=== PATIENT | male | born 1950 | race Caucasian/White ===

== ENCOUNTER 2019-10-21 15:00 | Emergency (ER) | payer MEDICARE ==
[~2019-10-21 15:00] MED LIST: CLOP75TA14 PO; GABA-531 PO; HYDR12.530 PO; INSU100V SQ; INSU300I SQ; LEVO75TA10 PO; LORA10TA7 PO; OMEG1CAP31 PO; PARO-66 PO; PROP80TA4 PO; RANI300T7 PO; SIMV-43 PO; SITA50TA PO; UBID100C10 PO
[2019-10-21] MEDS ORDERED: TETANUS/DIPHTHERIA TOXOID [ADULT] 0.5 ML VIAL IM ONE (16:10)
== END 2019-10-21 17:27 | disposition home or self-care (01) ==
LOC: EDH 15:00
DX: S61.211A Laceration without foreign body of left index finger without damage to nail, initial encounter (principal); E11.9 Type 2 diabetes mellitus without complications; Z91.041 Radiographic dye allergy status; Z88.8 Allergy status to other drugs, medicaments and biological substances; Z87.891 Personal history of nicotine dependence; W26.0XXA Contact with knife, initial encounter; Y93.G3 Activity, cooking and baking; Y92.098 Other place in other non-institutional residence as the place of occurrence of the external cause; Y99.8 Other external cause status
CPT/HCPCS: 73140; 90471; 90714

== ENCOUNTER 2020-10-04 09:57 | Emergency (ER) | payer MEDICARE ==
[2020-10-04 10:17] LABS: BASOPHILS % (AUTO) 0.5 % (0.0-5.0); EOSINOPHILS % (AUTO) 4.5 % (0.0-8.0); HEMATOCRIT 36.3 % (42-54); LYMPHOCYTES % (AUTO) 9.3 % (21.0-51.0); MEAN CORPUSCULAR HEMOGLOBIN 30.1 pg (27.0-33.0); MEAN CORPUSCULAR HGB CONC 30.3 g/dL (32.0-36.0); MEAN CORPUSCULAR VOLUME 99.2 fL (79-99); MONOCYTES % (AUTO) 11.8 % (3.0-13.0); PLATELET COUNT (AUTO) 246 K/uL (130-400); RED BLOOD CELL COUNT(AUTO) 3.66 MIL/uL (4.50-6.20); RED CELL DISTRIBUTION WIDTH 14.1 % (11.0-15.5); WHITE BLOOD COUNT (AUTO) 10.5 K/uL (4.8-10.8)
[2020-10-04 10:33] LABS: INR 1.06 (0.85-1.15); PARTIAL THROMBOPLASTIN TIME 37.6 SEC (26.3-35.5); PROTHROMBIN TIME 11.4 SEC (9.6-11.6)
[2020-10-04] MEDS ORDERED: ONDANSETRON HCL 4 MG/2 ML VIAL ONE (10:48)
[2020-10-04] MEDS ORDERED: MORPHINE SULFATE 4 MG/1ML SYG ONE (10:49)
[2020-10-04 10:58] LABS: ALBUMIN 3.6 g/dL (3.5-5.0); BILIRUBIN,TOTAL 0.3 mg/dL (0.2-1.0); CREATININE 1.7 mg/dL (0.5-1.5); POTASSIUM 4.5 mmol/L (3.5-5.1); TOTAL PROTEIN, SERUM 6.9 g/dL (6.0-8.3)
== END 2020-10-04 12:23 | disposition home or self-care (01) ==
LOC: EDH 09:57
DX: M25.061 Hemarthrosis, right knee (principal); M25.561 Pain in right knee; R07.89 Other chest pain; E11.9 Type 2 diabetes mellitus without complications; I10 Essential (primary) hypertension; I25.10 Atherosclerotic heart disease of native coronary artery without angina pectoris; I25.2 Old myocardial infarction; Z98.890 Other specified postprocedural states; Z91.041 Radiographic dye allergy status; Z88.8 Allergy status to other drugs, medicaments and biological substances; Z95.1 Presence of aortocoronary bypass graft; Z96.651 Presence of right artificial knee joint; W01.198A Fall on same level from slipping, tripping and stumbling with subsequent striking against other object, initial encounter; Y93.89 Activity, other specified; Y92.89 Other specified places as the place of occurrence of the external cause; Y99.8 Other external cause status
CPT/HCPCS: 36415; 71045; 73562; 80053; 84484; 85025; 85610; 85730; 93005; 96372; 96374; 99285; J2270; J2405

== ENCOUNTER → 2023-01-16 | Outpatient (CLI) | payer MEDICARE ==
[~2023-01-16] MED LIST changes: +ATOR20TA65 PO; +CARV6.2579 PO; +CITA-106 PO; -CLOP75TA14 PO; -GABA-531 PO; +GABA600T10 PO; -HYDR12.530 PO; -INSU100V SQ; -INSU300I SQ; +LEVO100T12 PO; -LEVO75TA10 PO; +MULT-1192 PO; +OMEG100014 PO; -OMEG1CAP31 PO; +PANT40TA PO; -PARO-66 PO; -PROP80TA4 PO; -RANI300T7 PO; -SIMV-43 PO; -SITA50TA PO; -UBID100C10 PO
[2023-01-16 16:16] LABS: BASOPHILS % (AUTO) 0.7 % (0.0-5.0); EOSINOPHILS % (AUTO) 3.7 % (0.0-8.0); HEMATOCRIT 29.2 % (42-54); LYMPHOCYTES % (AUTO) 11.4 % (21.0-51.0); MEAN CORPUSCULAR HEMOGLOBIN 22.7 pg (27.0-33.0); MEAN CORPUSCULAR HGB CONC 27.4 g/dL (32.0-36.0); MONOCYTES % (AUTO) 9.7 % (3.0-13.0); NEUTROPHILS % (AUTO) 74.1 % (40.0-77.0); PLATELET COUNT (AUTO) 407 K/uL (130-400); RED BLOOD CELL COUNT(AUTO) 3.52 MIL/uL (4.50-6.20); RED CELL DISTRIBUTION WIDTH 22.5 % (11.0-15.5); WHITE BLOOD COUNT (AUTO) 8.1 K/uL (4.8-10.8)
[2023-01-16 16:21] LABS: CREATININE 1.6 mg/dL (0.5-1.5)
== END | disposition home or self-care (01) ==
LOC: LAB 15:13
PROVIDERS: ATTEND Internal Medicine Cardiovascular Disease
DX: I48.0 Paroxysmal atrial fibrillation (principal); E78.5 Hyperlipidemia, unspecified; I10 Essential (primary) hypertension
CPT/HCPCS: 36415; 80048; 85025

== ENCOUNTER 2023-08-20 04:15 | Observation (INO) | payer MEDICARE, OTHER ==
[~2023-08-20] VITALS: Ht 182.9 cm; Wt 95.3 kg
[2023-08-20 04:55] LABS: BASOPHILS # (AUTO) 0.06 K/uL (0.00-0.20); BASOPHILS % (AUTO) 0.6 % (0.0-5.0); EOSINOPHILS # (AUTO) 0.48 K/uL (0.00-0.70); EOSINOPHILS % (AUTO) 4.9 % (0.0-8.0); HEMATOCRIT 43.2 % (42-54); IMMATURE GRANULOCYTE ABSOLUTE 0.04 K/uL (0-1); LYMPHOCYTES # (AUTO) 1.6 K/uL (1.0-4.8); LYMPHOCYTES % (AUTO) 16.7 % (21.0-51.0); MEAN CORPUSCULAR HEMOGLOBIN 29.6 pg (27.0-33.0); MEAN CORPUSCULAR HGB CONC 32.6 g/dL (32.0-36.0); MEAN CORPUSCULAR VOLUME 90.6 fL (79-99); MONOCYTES % (AUTO) 10.5 % (3.0-13.0); NEUTROPHILS # (AUTO) 6.5 K/uL (1.8-7.7); NEUTROPHILS % (AUTO) 66.9 % (40.0-77.0); PLATELET COUNT (AUTO) 279 K/uL (130-400); RED BLOOD CELL COUNT(AUTO) 4.77 MIL/uL (4.50-6.20); RED CELL DISTRIBUTION WIDTH 15.9 % (11.0-15.5); WHITE BLOOD COUNT (AUTO) 9.7 K/uL (4.8-10.8)
[2023-08-20] MEDS ORDERED: KETOROLAC 30MG VIAL (30MG/ML) IVP ONE (05:00)
[2023-08-20] MEDS ORDERED: HYDROMORPHONE 1 MG INJ IVP ONE (05:00)
[2023-08-20] MEDS ORDERED: 0.9%NACL 1000ML 1,000 ML IV ONE ×2 (05:00→09:30)
[2023-08-20] MEDS ORDERED: MORPHINE 4 MG SYG IV ONE ×2 (05:00→07:30)
[2023-08-20 05:07] LABS: CREATININE 1.4 mg/dL (0.5-1.5); POTASSIUM 4.2 mmol/L (3.5-5.1)
[2023-08-20 05:11] LABS: ALBUMIN 4.3 g/dL (3.5-5.0); BILIRUBIN,TOTAL 0.4 mg/dL (0.2-1.0); TOTAL PROTEIN, SERUM 8.4 g/dL (6.0-8.3)
[2023-08-20 07:27] LABS: ADD UA MICROSCOPIC YES; APPEARANCE,URINE CLOUDY (CLEAR); BILIRUBIN,URINE NEGATIVE (NEGATIVE); COLOR,URINE LIGHT-YELLOW (YELLOW); GLUCOSE, URINE (UA) NEGATIVE (NEGATIVE); KETONES,URINE NEGATIVE (NEGATIVE); LEUKOCYTE ESTERASE ,URINE 500 Leu/uL (NEGATIVE); NITRATE,URINE NEGATIVE (NEGATIVE); OCCULT BLOOD,URINE LARGE (NEGATIVE); PROTEIN,URINE 50 mg/dL (NEGATIVE); UROBILINOGEN,URINE 0.2 mg/dL (0.2-1.0)
[2023-08-20 07:33] LABS: BACTERIA,URINE RARE /HPF (None Seen); MUCUS,URINE RARE LPF (None Seen); RBC,URINE TNTC /HPF (0-1); SQUAMOUS EPITHELIAL CELL,UR RARE /HPF (0-2); WBC CLUMP MANY /HPF (0-1); WBC,URINE TNTC /HPF (0-1)
[2023-08-20] MEDS ORDERED: CEFTRIAXONE 2GM VIAL IVPB ONE (08:00)
[2023-08-20] MEDS ORDERED: MORPHINE 4 MG SYG IVP ONE (09:30)
[2023-08-20] MEDS ORDERED: ONDANSETRON 4MG INJ IVP PRN (10:00)
[2023-08-20] MEDS ORDERED: ACETAMINOPHEN 325 MG TAB PO PRN (10:00)
[2023-08-20] MEDS: CEFTRIAXONE 1G VIAL IVPB SCH (10:00)
[2023-08-20] MEDS ORDERED: TAMSULOSIN HCL 0.4 MG CAP.ER.24H PO ONE (10:00)
[2023-08-20] MEDS: INSULIN HUMULIN R 100 UNIT/ML 3ML SQ SCH ×3 (11:30→20:07)
[2023-08-20 12:00] VITALS: BP 144/89; PULSE 72; RESP 19; O2SAT 96
[2023-08-20] MEDS: MORPHINE 2 MG SYG IVP PRN ×3 (12:58→21:50)
[2023-08-20 16:00] VITALS: BP 154/94; PULSE 66; RESP 16
[2023-08-20] MEDS ORDERED: ALPR1TAB2 PO (18:37)
[2023-08-20] MEDS ORDERED: FLUT16H NASAL (18:37)
[2023-08-20] MEDS ORDERED: RIVA20TA PO (18:37)
[2023-08-20] MEDS ORDERED: MONT-47 PO (18:37)
[2023-08-20] MEDS ORDERED: SEMA0.258 SQ (18:37)
[2023-08-20] MEDS ORDERED: ESOM20CA31 PO (18:37)
[2023-08-20] MEDS ORDERED: ESCI20TA38 PO (18:37)
[2023-08-20] MEDS ORDERED: GABA600T10 PO (18:37)
[2023-08-20] MEDS ORDERED: EZET10TA48 PO (18:37)
[2023-08-20] MEDS ORDERED: UBID100C10 PO (18:37)
[2023-08-20] MEDS ORDERED: ESCI20TA PO (18:37)
[2023-08-20] MEDS ORDERED: INDA2.5T5 PO (18:37)
[2023-08-20] MEDS ORDERED: AMIT10TA6 PO (18:37)
[2023-08-20] MEDS ORDERED: ASPI-1443 PO (18:37)
[2023-08-20 20:00] VITALS: BP 183/101; PULSE 78; RESP 18
[2023-08-20] MEDS: HYDRALAZINE 20MG/ML VIAL IV PRN (20:09)
[2023-08-20 23:30] VITALS: BP 180/85; PULSE 95; RESP 18
[2023-08-20] MEDS: ACETAMINOPHEN 325 MG TAB PO PRN (23:41)
[2023-08-20] MEDS ORDERED: LABETALOL 20MG SYG IV ONE (23:45)
[2023-08-21] VITALS (8 sets, daily range): BP systolic 128–177; BP diastolic 71–109; PULSE 80–121; RESP 18–20; O2SAT 97–99
[2023-08-21] MEDS: MORPHINE 2 MG SYG IVP PRN ×2 (03:45→10:11)
[2023-08-21] MEDS: HYDRALAZINE 20MG/ML VIAL IV PRN ×2 (04:17→08:59)
[2023-08-21 06:21] LABS: BASOPHILS # (AUTO) 0.02 K/uL (0.00-0.20); BASOPHILS % (AUTO) 0.2 % (0.0-5.0); EOSINOPHILS # (AUTO) 0.02 K/uL (0.00-0.70); EOSINOPHILS % (AUTO) 0.2 % (0.0-8.0); HEMATOCRIT 39.5 % (42-54); IMMATURE GRANULOCYTE ABSOLUTE 0.04 K/uL (0-1); LYMPHOCYTES # (AUTO) 0.7 K/uL (1.0-4.8); LYMPHOCYTES % (AUTO) 6.5 % (21.0-51.0); MEAN CORPUSCULAR HEMOGLOBIN 29.4 pg (27.0-33.0); MEAN CORPUSCULAR HGB CONC 31.9 g/dL (32.0-36.0); MEAN CORPUSCULAR VOLUME 92.1 fL (79-99); MONOCYTES # (AUTO) 0.4 K/uL (0.1-1.0); MONOCYTES % (AUTO) 3.5 % (3.0-13.0); NEUTROPHILS # (AUTO) 8.9 K/uL (1.8-7.7); NEUTROPHILS % (AUTO) 89.2 % (40.0-77.0); PLATELET COUNT (AUTO) 245 K/uL (130-400); RED BLOOD CELL COUNT(AUTO) 4.29 MIL/uL (4.50-6.20); RED CELL DISTRIBUTION WIDTH 15.8 % (11.0-15.5)
[2023-08-21 06:27] LABS: CREATININE 1.1 mg/dL (0.5-1.5); MAGNESIUM 1.5 mg/dL (1.80-2.40); POTASSIUM 3.5 mmol/L (3.5-5.1)
[2023-08-21] MEDS: INSULIN HUMULIN R 100 UNIT/ML 3ML SQ SCH ×4 (06:32→21:45)
[2023-08-21] MEDS ORDERED: MAGNESIUM 2GM PREMIX 50ML 50 ML IV PRN (07:30)
[2023-08-21] MEDS ORDERED: POTASSIUM CHLORIDE 10% ELIXIR 20 MEQ/15 ML UDCUP PO PRN (07:30)
[2023-08-21] MEDS ORDERED: POTASSIUM CHLORIDE 20MEQ/100ML 100 ML IV PRN (07:30)
[2023-08-21] MEDS: RIVAROXABAN 20 MG TABLET PO SCH (08:58)
[2023-08-21] MEDS: TAMSULOSIN HCL 0.4 MG CAP.ER.24H PO SCH (08:58)
[2023-08-21] MEDS: KCL 20 MEQ ERTAB PO PRN ×2 (08:59→12:59)
[2023-08-21] MEDS ORDERED: NON-FORMULARY MEDICATION 1 EACH (Escitalopram Oxalate (Lexapro) 20 MG) PO SCH (09:00)
[2023-08-21] MEDS: Escitalopram Oxalate 20 MG PO SCH (09:00)
[2023-08-21] MEDS: FATTY ACIDS PO SCH (09:00)
[2023-08-21] MEDS ORDERED: NON-FORMULARY MEDICATION 1 EACH (Multivitamin (Multi-Vitamin Daily) 1 EACH) PO SCH (09:00)
[2023-08-21] MEDS: Ubidecarenone (Coq-10) 100 MG PO SCH (09:00)
[2023-08-21] MEDS: OMEGA PO SCH (09:00)
[2023-08-21] MEDS: ASPIRIN 81 MG EC TAB PO SCH (09:00)
[2023-08-21] MEDS: INDAPAMIDE 2.5 MG PO SCH (09:00)
[2023-08-21] MEDS: ACETAMINOPHEN 325 MG TAB PO PRN (09:01)
[2023-08-21] MEDS: CEFTRIAXONE 1G VIAL IVPB SCH (09:03)
[2023-08-21] MEDS: PANTOPRAZOLE 40 MG/VIAL IVP SCH (09:12)
[2023-08-21] MEDS ORDERED: HYDROMORPHONE 2 MG VIAL (2MG/ML) IVP ONE (10:30)
[2023-08-21] MEDS ORDERED: CYCLOBENZAPRINE HCL 10 MG TABLET PO PRN (10:30)
[2023-08-21] MEDS ORDERED: LIDOCAINE 5% TOPICAL PATCH TP ONE (10:30)
[2023-08-21] MEDS ORDERED: MAG/ALUM/SIMETH 30 ML UDCUP PO PRN (13:00)
[2023-08-21] MEDS ORDERED: GABAPENTIN 300 MG CAPSULE PO SCH (21:00)
[2023-08-21] MEDS ORDERED: NON-FORMULARY MEDICATION 1 EACH (Gabapentin 600 MG) PO SCH (21:00)
[2023-08-21] MEDS ORDERED: EZETIMIBE 10 MG TAB PO SCH (21:00)
[2023-08-21] MEDS ORDERED: ATORVASTATIN 20 MG TABLET PO SCH (21:00)
[2023-08-21] MEDS ORDERED: AMITRIPTYLINE 10MG TAB PO SCH (21:00)
[2023-08-21] MEDS ORDERED: MONTELUKAST SODIUM 10 MG TAB PO SCH (21:00)
[2023-08-21] MEDS ORDERED: CARVEDILOL 6.25 MG TABLET PO SCH (21:00)
[2023-08-22 04:00] VITALS: BP 123/73; PULSE 79; RESP 18
[2023-08-22 05:41] LABS: BASOPHILS # (AUTO) 0.02 K/uL (0.00-0.20); BASOPHILS % (AUTO) 0.3 % (0.0-5.0); EOSINOPHILS # (AUTO) 0.23 K/uL (0.00-0.70); EOSINOPHILS % (AUTO) 3.3 % (0.0-8.0); HEMATOCRIT 36.2 % (42-54); IMMATURE GRANULOCYTE ABSOLUTE 0.04 K/uL (0-1); LYMPHOCYTES # (AUTO) 1.4 K/uL (1.0-4.8); LYMPHOCYTES % (AUTO) 19.3 % (21.0-51.0); MEAN CORPUSCULAR HEMOGLOBIN 29.5 pg (27.0-33.0); MEAN CORPUSCULAR HGB CONC 32.3 g/dL (32.0-36.0); MEAN CORPUSCULAR VOLUME 91.4 fL (79-99); MONOCYTES # (AUTO) 0.9 K/uL (0.1-1.0); MONOCYTES % (AUTO) 12.1 % (3.0-13.0); NEUTROPHILS # (AUTO) 4.6 K/uL (1.8-7.7); NEUTROPHILS % (AUTO) 64.4 % (40.0-77.0); PLATELET COUNT (AUTO) 241 K/uL (130-400); RED BLOOD CELL COUNT(AUTO) 3.96 MIL/uL (4.50-6.20); RED CELL DISTRIBUTION WIDTH 16.1 % (11.0-15.5); WHITE BLOOD COUNT (AUTO) 7.1 K/uL (4.8-10.8)
[2023-08-22 06:12] LABS: CREATININE 1.3 mg/dL (0.5-1.5); POTASSIUM 3.6 mmol/L (3.5-5.1)
[2023-08-22] MEDS ORDERED: LEVO-70 PO (06:40)
[2023-08-22] MEDS: KCL 20 MEQ ERTAB PO PRN ×2 (06:40→08:29)
[2023-08-22] MEDS: INSULIN HUMULIN R 100 UNIT/ML 3ML SQ SCH ×2 (06:42→11:28)
[2023-08-22] MEDS ORDERED: TAMS-1 PO (06:46)
[2023-08-22] MEDS ORDERED: LEVOTHYROXINE 100 MCG TABLET PO SCH (07:30)
[2023-08-22 08:00] VITALS: BP 116/71; PULSE 73; RESP 18; O2SAT 96
[2023-08-22] MEDS: CEFTRIAXONE 1G VIAL IVPB SCH (08:27)
[2023-08-22] MEDS: PANTOPRAZOLE 40 MG/VIAL IVP SCH (08:27)
[2023-08-22] MEDS: TAMSULOSIN HCL 0.4 MG CAP.ER.24H PO SCH (08:29)
[2023-08-22] MEDS: ASPIRIN 81 MG EC TAB PO SCH (08:29)
[2023-08-22] MEDS: RIVAROXABAN 20 MG TABLET PO SCH (08:29)
[2023-08-22] MEDS: FATTY ACIDS PO SCH (08:39)
[2023-08-22] MEDS: OMEGA PO SCH (08:39)
[2023-08-22] MEDS: Ubidecarenone (Coq-10) 100 MG PO SCH (08:39)
[2023-08-22] MEDS: INDAPAMIDE 2.5 MG PO SCH (08:39)
[2023-08-22] MEDS: Escitalopram Oxalate 20 MG PO SCH (08:39)
[2023-08-22] MEDS ORDERED: LIDOCAINE 5% TOPICAL PATCH TP SCH (09:00)
[2023-08-22 12:00] VITALS: BP 133/79; PULSE 74; RESP 18
== END 2023-08-22 13:00 | disposition still patient (30) ==
LOC: EDH 04:15 → INTOOBSV 09:57 → EDHIP 09:57 → 3CH 12:15
PROVIDERS: ADMIT Hospitalist; ATTEND Hospitalist
DX: N39.0 Urinary tract infection, site not specified (principal); N20.0 Calculus of kidney; R31.0 Gross hematuria; M79.669 Pain in unspecified lower leg; M54.32 Sciatica, left side; E03.9 Hypothyroidism, unspecified; I25.10 Atherosclerotic heart disease of native coronary artery without angina pectoris; E78.00 Pure hypercholesterolemia, unspecified; G47.33 Obstructive sleep apnea (adult) (pediatric); G89.29 Other chronic pain; Q33.3 Agenesis of lung; Z79.01 Long term (current) use of anticoagulants; Z79.899 Other long term (current) drug therapy; Z87.442 Personal history of urinary calculi; Z95.1 Presence of aortocoronary bypass graft; Z95.5 Presence of coronary angioplasty implant and graft; Z96.641 Presence of right artificial hip joint; Z96.659 Presence of unspecified artificial knee joint; Z79.82 Long term (current) use of aspirin; Z98.890 Other specified postprocedural states
CPT/HCPCS: 96376 ×3; 96361; 96365; 96366; 96375; 99285; 80053; 85025 ×3; 87077; 87088; 87186; 82948 ×10; 81001; 36415 ×3; 74176; 96372; 83735 ×2; 80048 ×2; 97161; 97116 ×2; 97530 ×5; J1170; J2270 ×8; J7030; J0696 ×3; J0360 ×3; J1885; J3475; C9113 ×2; J1815; G8980; G8983; G0378

== ENCOUNTER → 2023-12-07 | Outpatient (CLI) | payer MEDICARE ==
[~2023-12-07] MED LIST changes: +ALPR1TAB2 PO; +AMIT10TA6 PO; +ASPI-1443 PO; -CITA-106 PO; +ESCI20TA PO; +ESCI20TA38 PO; +ESOM20CA31 PO; +EZET10TA48 PO; +FLUT16H NASAL; +INDA2.5T5 PO; +LEVO-70 PO; -LORA10TA7 PO; +MONT-47 PO; +RIVA20TA PO; +SEMA0.258 SQ; +TAMS-1 PO; +UBID100C10 PO
[2023-12-07 15:12] LABS: BASOPHILS # (AUTO) 0.06 K/uL (0.00-0.20); BASOPHILS % (AUTO) 0.7 % (0.0-5.0); EOSINOPHILS # (AUTO) 0.32 K/uL (0.00-0.70); HEMATOCRIT 38.7 % (42-54); IMMATURE GRANULOCYTE ABSOLUTE 0.06 K/uL (0-1); LYMPHOCYTES # (AUTO) 1.4 K/uL (1.0-4.8); LYMPHOCYTES % (AUTO) 17.9 % (21.0-51.0); MEAN CORPUSCULAR HEMOGLOBIN 29.8 pg (27.0-33.0); MEAN CORPUSCULAR HGB CONC 31.3 g/dL (32.0-36.0); MEAN CORPUSCULAR VOLUME 95.3 fL (79-99); NEUTROPHILS # (AUTO) 5.1 K/uL (1.8-7.7); NEUTROPHILS % (AUTO) 63.7 % (40.0-77.0); PLATELET COUNT (AUTO) 295 K/uL (130-400); RED BLOOD CELL COUNT(AUTO) 4.06 MIL/uL (4.50-6.20); RED CELL DISTRIBUTION WIDTH 13.4 % (11.0-15.5)
[2023-12-07 15:32] LABS: BILIRUBIN,TOTAL 0.3 mg/dL (0.2-1.0); CREATININE 1.5 mg/dL (0.5-1.5); MAGNESIUM 1.9 mg/dL (1.80-2.40); POTASSIUM 4.2 mmol/L (3.5-5.1); TOTAL PROTEIN, SERUM 7.4 g/dL (6.0-8.3)
== END | disposition home or self-care (01) ==
LOC: LAB 13:22
PROVIDERS: ATTEND Internal Medicine Cardiovascular Disease
DX: I10 Essential (primary) hypertension (principal); E78.5 Hyperlipidemia, unspecified
CPT/HCPCS: 36415; 80053; 83735; 83880; 85025

== ENCOUNTER 2023-12-26 17:33 | Emergency (ER) | payer MEDICARE ==
[~2023-12-26] VITALS: Ht 182.9 cm; Wt 90.7 kg
[~2023-12-26 17:33] MED LIST changes: +AMOX1TAB16 PO; +BUDE10.7 IH; +CHOL500045 PO; +LEVO750T39 PO
[2023-12-26 18:19] VITALS: BP 201/103; PULSE 108; RESP 20
[2023-12-26] MEDS ORDERED: PHEN-847 PO (18:52)
[2023-12-26] MEDS: PHENAZOPYRIDINE HCL 200 MG TABLET PO ONE (19:17)
[2023-12-26] MEDS: AMOX/CLAV 875/125MG TAB PO ONE (19:17)
== END 2023-12-26 19:35 | disposition home or self-care (01) ==
LOC: EDH 17:33
DX: R33.9 Retention of urine, unspecified (principal); Z79.82 Long term (current) use of aspirin; Z79.84 Long term (current) use of oral hypoglycemic drugs; Z79.899 Other long term (current) drug therapy; Z98.890 Other specified postprocedural states; Z88.1 Allergy status to other antibiotic agents; Z88.5 Allergy status to narcotic agent; Z91.030 Bee allergy status; Z91.041 Radiographic dye allergy status; Z88.8 Allergy status to other drugs, medicaments and biological substances
CPT/HCPCS: 51702

== ENCOUNTER 2023-12-31 02:17 | Inpatient (IN) | payer MEDICARE ==
[~2023-12-31] VITALS: Ht 182.9 cm; Wt 105.6 kg
[~2023-12-31 02:17] MED LIST changes: -AMIT10TA6 PO; -ASPI-1443 PO; -CARV6.2579 PO; -ESCI20TA38 PO; -ESOM20CA31 PO; -GABA600T10 PO; -INDA2.5T5 PO; -LEVO-70 PO; -LEVO750T39 PO; +PHEN-847 PO
[2023-12-31 03:06] LABS: BASOPHILS # (AUTO) 0.03 K/uL (0.00-0.20); BASOPHILS % (AUTO) 0.2 % (0.0-5.0); EOSINOPHILS # (AUTO) 0.43 K/uL (0.00-0.70); EOSINOPHILS % (AUTO) 3.1 % (0.0-8.0); HEMATOCRIT 31.7 % (42-54); IMMATURE GRANULOCYTE ABSOLUTE 0.35 K/uL (0-1); LYMPHOCYTES # (AUTO) 1.6 K/uL (1.0-4.8); LYMPHOCYTES % (AUTO) 11.5 % (21.0-51.0); MEAN CORPUSCULAR HEMOGLOBIN 28.9 pg (27.0-33.0); MEAN CORPUSCULAR HGB CONC 32.5 g/dL (32.0-36.0); MONOCYTES # (AUTO) 1.4 K/uL (0.1-1.0); MONOCYTES % (AUTO) 10.3 % (3.0-13.0); NEUTROPHILS % (AUTO) 72.4 % (40.0-77.0); PLATELET COUNT (AUTO) 344 K/uL (130-400); RED BLOOD CELL COUNT(AUTO) 3.56 MIL/uL (4.50-6.20); RED CELL DISTRIBUTION WIDTH 13.2 % (11.0-15.5); WHITE BLOOD COUNT (AUTO) 13.8 K/uL (4.8-10.8)
[2023-12-31] MEDS: ONDANSETRON 4MG INJ IVP ONE (03:06)
[2023-12-31] MEDS: KETOROLAC 30MG VIAL (30MG/ML) IVP ONE (03:06)
[2023-12-31 03:16] LABS: CREATININE 1.6 mg/dL (0.5-1.5); POTASSIUM 3.4 mmol/L (3.5-5.1)
[2023-12-31 03:30] LABS: ALBUMIN 3.1 g/dL (3.5-5.0); BILIRUBIN,TOTAL 0.4 mg/dL (0.2-1.0); TOTAL PROTEIN, SERUM 6.9 g/dL (6.0-8.3)
[2023-12-31] MEDS: DiphenhydrAMINE HCL 50 MG/ML VIAL IV ONE (03:38)
[2023-12-31 03:53] LABS: APPEARANCE,URINE CLOUDY (CLEAR); BILIRUBIN,URINE 1 mg/dL (NEGATIVE); COLOR,URINE DARK-YELLOW (YELLOW); GLUCOSE, URINE (UA) NEGATIVE (NEGATIVE); KETONES,URINE NEGATIVE (NEGATIVE); LEUKOCYTE ESTERASE ,URINE 500 Leu/uL (NEGATIVE); NITRATE,URINE 1+ (NEGATIVE); OCCULT BLOOD,URINE LARGE (NEGATIVE); PROTEIN,URINE 30 mg/dL (NEGATIVE); UROBILINOGEN,URINE 3 mg/dL (0.2-1.0)
[2023-12-31 03:54] LABS: ADD UA MICROSCOPIC YES
[2023-12-31 03:59] LABS: BACTERIA,URINE RARE /HPF (None Seen); MUCUS,URINE RARE LPF (None Seen); RBC,URINE TNTC /HPF (0-1); SQUAMOUS EPITHELIAL CELL,UR RARE /HPF (0-2); WBC,URINE 51-100 /HPF (0-1)
[2023-12-31] MEDS: CEFTRIAXONE 2GM VIAL IVPB ONE (04:17)
[2023-12-31] MEDS: HYDROMORPHONE 1 MG INJ IVP ONE (04:18)
[2023-12-31] MEDS: POTASSIUM BICARB/CIT AC 25 MEQ TABLET.EFF PO ONE (05:58)
[2023-12-31] MEDS: POTASSIUM BICARB/CIT AC 25 MEQ TABLET.EFF ONE (05:59)
[2023-12-31] MEDS ORDERED: ONDANSETRON 4MG INJ IV PRN (06:30)
[2023-12-31] MEDS ORDERED: DEXTROSE 50%-WATER 50 ML DISP.SYRIN IV PRN (06:30)
[2023-12-31] MEDS ORDERED: GLUCAGON 1MG KIT 1 MG ML IM PRN (06:30)
[2023-12-31] MEDS: LACTATED RINGERS 1000ML 1,000 ML IV SCH (07:16)
[2023-12-31] MEDS: INSULIN HUMULIN R 100 UNIT/ML 3ML SQ SCH (07:16)
[2023-12-31] MEDS ORDERED: CEFTRIAXONE 1G VIAL 1 GM in 0.9%NACL 50ML 50 ML IV SCH (09:00)
[2023-12-31] MEDS: FAMOTIDINE 20MG VIAL IV SCH (09:10)
[2023-12-31] MEDS: HYDROMORPHONE 0.5 MG SYG (0.5MG/0.5ML) IVP PRN (10:13)
[2023-12-31] MEDS: KETOROLAC 15MG/ML VIAL (15MG/ML) IV PRN (13:29)
[2023-12-31] MEDS: CEFTRIAXONE 1G VIAL IVPB SCH (18:03)
[2023-12-31 21:25] LABS: SARS-CoV-2, RNA, NAAT NEGATIVE SARS CoV-2 (NEGATIVE)
[2023-12-31 21:32] LABS: INFLUENZA TYPE A Negative For Type A (NEGATIVE); INFLUENZA TYPE B Negative For Type B (NEGATIVE)
[2023-12-31 23:10] VITALS: BP 129/69; PULSE 73; RESP 18; O2SAT 95
[2024-01-01] VITALS (7 sets, daily range): BP systolic 130–150; BP diastolic 66–80; PULSE 69–78; RESP 17–18; O2SAT 95–97
[2024-01-01 06:01] LABS: BASOPHILS # (AUTO) 0.02 K/uL (0.00-0.20); BASOPHILS % (AUTO) 0.3 % (0.0-5.0); EOSINOPHILS # (AUTO) 0.46 K/uL (0.00-0.70); EOSINOPHILS % (AUTO) 5.8 % (0.0-8.0); HEMATOCRIT 30.2 % (42-54); IMMATURE GRANULOCYTE ABSOLUTE 0.15 K/uL (0-1); LYMPHOCYTES # (AUTO) 0.6 K/uL (1.0-4.8); LYMPHOCYTES % (AUTO) 6.9 % (21.0-51.0); MEAN CORPUSCULAR HEMOGLOBIN 28.3 pg (27.0-33.0); MEAN CORPUSCULAR HGB CONC 30.1 g/dL (32.0-36.0); MEAN CORPUSCULAR VOLUME 94.1 fL (79-99); MONOCYTES # (AUTO) 0.8 K/uL (0.1-1.0); NEUTROPHILS % (AUTO) 75.1 % (40.0-77.0); PLATELET COUNT (AUTO) 297 K/uL (130-400); RED BLOOD CELL COUNT(AUTO) 3.21 MIL/uL (4.50-6.20); RED CELL DISTRIBUTION WIDTH 13.4 % (11.0-15.5)
[2024-01-01 06:13] LABS: INR 0.98 (0.85-1.15); PROTHROMBIN TIME 11.4 SEC (9.6-11.6)
[2024-01-01 06:14] LABS: PARTIAL THROMBOPLASTIN TIME 41.1 SEC (26.3-35.5)
[2024-01-01 06:22] LABS: ALBUMIN 2.5 g/dL (3.5-5.0); BILIRUBIN,TOTAL 0.3 mg/dL (0.2-1.0); CREATININE 1.5 mg/dL (0.5-1.5); MAGNESIUM 1.7 mg/dL (1.80-2.40); POTASSIUM 4.2 mmol/L (3.5-5.1); TOTAL PROTEIN, SERUM 5.8 g/dL (6.0-8.3)
[2024-01-01] MEDS: MAGNESIUM 2GM PREMIX 50ML 50 ML IV PRN (06:39)
[2024-01-01 08:43] LABS: WBC MORPHOLOGY CONSISTENT W/DIFF
[2024-01-01] MEDS ORDERED: FLUTICASONE PROPIONATE 50MCG/SPRAY 16 GM BOTTLE NS PRN (20:00)
[2024-01-01] MEDS: PANTOPRAZOLE 40 MG TAB DR PO SCH (20:05)
[2024-01-01] MEDS: TAMSULOSIN HCL 0.4 MG CAP.ER.24H PO SCH (20:05)
[2024-01-01] MEDS: ESCITALOPRAM OXALATE 20 MG PO SCH (21:00)
[2024-01-01] MEDS: FATTY ACIDS PO SCH (21:00)
[2024-01-01] MEDS: OMEGA PO SCH (21:00)
[2024-01-01] MEDS: EZETIMIBE 10 MG TAB PO SCH (21:12)
[2024-01-01] MEDS: MONTELUKAST SODIUM 10 MG TAB PO SCH (21:12)
[2024-01-01] MEDS: ALPRAZOLAM 1 MG TAB PO SCH (21:12)
[2024-01-01] MEDS: ATORVASTATIN 40 MG TABLET PO SCH (21:12)
[2024-01-02 04:00] VITALS: BP 164/89; PULSE 75; RESP 18
[2024-01-02] MEDS: LEVOTHYROXINE 100 MCG TABLET PO SCH (05:34)
[2024-01-02 07:45] VITALS: O2SAT 95
[2024-01-02 08:00] VITALS: BP 158/86; PULSE 70; RESP 18
[2024-01-02] MEDS: UBIDECARENONE 200 MG PO SCH (09:00)
[2024-01-02] MEDS: (Cholecalciferol (Vitamin D3) (Vitamin D3) 125 MCG) PO SCH (09:00)
[2024-01-02] MEDS ORDERED: TAMSULOSIN HCL 0.4 MG CAP.ER.24H PO SCH (09:00)
[2024-01-02] MEDS: RIVAROXABAN 20 MG TABLET PO SCH (09:16)
[2024-01-02] MEDS: MULTIVITAMIN TABLET PO SCH (09:17)
[2024-01-02] MEDS ORDERED: TAMS-1 PO (11:42)
[2024-01-02 11:47] VITALS: BP 133/79; PULSE 90; RESP 16
== END 2024-01-02 14:00 | disposition home or self-care (01) | DRG 694 ==
LOC: EDH 02:17 → EDHIP 06:18 → 3CH 22:24
PROVIDERS: ADMIT Hospitalist; ATTEND Hospitalist
DX: N20.2 Calculus of kidney with calculus of ureter (principal); N17.9 Acute kidney failure, unspecified; D64.9 Anemia, unspecified; J44.9 Chronic obstructive pulmonary disease, unspecified; Z96.659 Presence of unspecified artificial knee joint; N18.30 Chronic kidney disease, stage 3 unspecified; E03.9 Hypothyroidism, unspecified; Z20.822 Contact with and (suspected) exposure to COVID-19; E11.22 Type 2 diabetes mellitus with diabetic chronic kidney disease; E78.00 Pure hypercholesterolemia, unspecified; I12.9 Hypertensive chronic kidney disease with stage 1 through stage 4 chronic kidney disease, or unspecified chronic kidney disease; I25.10 Atherosclerotic heart disease of native coronary artery without angina pectoris; F43.10 Post-traumatic stress disorder, unspecified; E87.6 Hypokalemia; K57.90 Diverticulosis of intestine, part unspecified, without perforation or abscess without bleeding; Z79.899 Other long term (current) drug therapy; Z83.3 Family history of diabetes mellitus; Z93.6 Other artificial openings of urinary tract status; Z95.5 Presence of coronary angioplasty implant and graft; Z95.1 Presence of aortocoronary bypass graft; Z87.442 Personal history of urinary calculi; Z82.49 Family history of ischemic heart disease and other diseases of the circulatory system; Z82.0 Family history of epilepsy and other diseases of the nervous system
CPT/HCPCS: 36415; 74176; 80053; 81001; 82948; 83735; 84484; 85025; 85610; 85730; 87088; 87635; 87804; 93005; G0378; J0696; J1170; J1200; J1885; J2405; J3475; J3490

== ENCOUNTER → 2024-01-08 | Outpatient (CLI) | payer MEDICARE ==
[~2024-01-08] MED LIST changes: -AMOX1TAB16 PO; -PHEN-847 PO
== END | disposition home or self-care (01) ==
LOC: RAH 11:52
PROVIDERS: ATTEND Urology
DX: N20.0 Calculus of kidney (principal); K59.04 Chronic idiopathic constipation; K59.09 Other constipation
CPT/HCPCS: 74018; 76100

== ENCOUNTER 2024-01-09 13:36 | Emergency (ER) | payer MEDICARE, OTHER ==
[~2024-01-09] VITALS: Ht 182.9 cm; Wt 81.6 kg
[2024-01-09 14:39] LABS: BASOPHILS # (AUTO) 0.07 K/uL (0.00-0.20); BASOPHILS % (AUTO) 0.8 % (0.0-5.0); EOSINOPHILS # (AUTO) 0.28 K/uL (0.00-0.70); EOSINOPHILS % (AUTO) 3.1 % (0.0-8.0); IMMATURE GRANULOCYTE ABSOLUTE 0.07 K/uL (0-1); LYMPHOCYTES # (AUTO) 1.2 K/uL (1.0-4.8); LYMPHOCYTES % (AUTO) 12.6 % (21.0-51.0); MEAN CORPUSCULAR HEMOGLOBIN 28.5 pg (27.0-33.0); MEAN CORPUSCULAR HGB CONC 30.8 g/dL (32.0-36.0); MEAN CORPUSCULAR VOLUME 92.5 fL (79-99); MONOCYTES # (AUTO) 1.2 K/uL (0.1-1.0); MONOCYTES % (AUTO) 13.1 % (3.0-13.0); NEUTROPHILS # (AUTO) 6.4 K/uL (1.8-7.7); NEUTROPHILS % (AUTO) 69.6 % (40.0-77.0); PLATELET COUNT (AUTO) 427 K/uL (130-400); RED CELL DISTRIBUTION WIDTH 13.7 % (11.0-15.5); WHITE BLOOD COUNT (AUTO) 9.2 K/uL (4.8-10.8)
[2024-01-09 14:49] LABS: CREATININE 1.7 mg/dL (0.5-1.5); POTASSIUM 4.5 mmol/L (3.5-5.1)
[2024-01-09 14:51] LABS: INR 1.2 (0.85-1.15)
[2024-01-09 14:53] LABS: PARTIAL THROMBOPLASTIN TIME 51.6 SEC (26.3-35.5)
[2024-01-09 14:54] LABS: ALBUMIN 3.8 g/dL (3.5-5.0); BILIRUBIN,TOTAL 0.4 mg/dL (0.2-1.0); TOTAL PROTEIN, SERUM 8.2 g/dL (6.0-8.3)
[2024-01-09] MEDS: LACTATED RINGERS 1000ML 1,000 ML IV ONE (15:18)
[2024-01-09] MEDS ORDERED: IOHEXOL 350 MG/ML 100ML INFUS..BTL IV ONE (16:18)
[2024-01-09] MEDS: SOLU-MEDROL 40MG VIAL IVP ONE (16:41)
[2024-01-09] MEDS: DiphenhydrAMINE HCL 50 MG/ML VIAL IV ONE (16:41)
[2024-01-09 17:17] LABS: APPEARANCE,URINE CLOUDY (CLEAR); BILIRUBIN,URINE NEGATIVE (NEGATIVE); COLOR,URINE YELLOW (YELLOW); GLUCOSE, URINE (UA) NEGATIVE (NEGATIVE); KETONES,URINE NEGATIVE (NEGATIVE); LEUKOCYTE ESTERASE ,URINE 500 Leu/uL (NEGATIVE); NITRATE,URINE NEGATIVE (NEGATIVE); OCCULT BLOOD,URINE LARGE (NEGATIVE); PH,URINE 6.5 (5.0-8.0); PROTEIN,URINE 100 mg/dL (NEGATIVE); UROBILINOGEN,URINE 0.2 mg/dL (0.2-1.0)
[2024-01-09 17:18] LABS: ADD UA MICROSCOPIC YES
[2024-01-09 17:27] LABS: MUCUS,URINE RARE LPF (None Seen); RBC,URINE TNTC /HPF (0-1); WBC,URINE 26-50 /HPF (0-1)
[2024-01-09 21:31] VITALS: BP 159/80; PULSE 68; RESP 18; O2SAT 96
== END 2024-01-09 21:31 | disposition short-term general hospital (02) ==
LOC: EDH 13:36
DX: R29.6 Repeated falls (principal); G45.0 Vertebro-basilar artery syndrome; I25.10 Atherosclerotic heart disease of native coronary artery without angina pectoris; E78.00 Pure hypercholesterolemia, unspecified; I10 Essential (primary) hypertension; Z91.030 Bee allergy status; Z88.5 Allergy status to narcotic agent; Z91.040 Latex allergy status; Z88.8 Allergy status to other drugs, medicaments and biological substances
CPT/HCPCS: 99285; 70450; 96374; 96361; 96375; 84484; 80053; 85025; 85610; 85730; 87088; 81001; 36415; 73090; 73130; 73562; 70496; 70498; 93005; J7120; J1200; J2920; Q9967